=== PATIENT | female | born 1945 | race Caucasian/White ===

== ENCOUNTER → 2017-10-14 12:39 | Outpatient (CLI) | payer MEDICARE, BC, SELFPAY ==
--- NOTE | 2017-10-14 | MM_ITS ---
MM Dig mamm DX unilat LT CAD INDICATION: History of breast cancer with radiation and surgery. Developing calcifications in the upper outer left breast Follow-up abnormal mammogram ORDERING PHYSICIAN: New Colmenares MD PATIENT AGE: 72 years COMPARISON: 04/09/2017, 04/18/2017, 03/20/1950 TECHNIQUE: Standard images performed along with views FINDINGS: Average fibroglandular tissue. Asymmetric density is present in the upper outer left breast in the surgical bed consistent with scarring. There is some deformity of the left breast in this region. Coarse calcifications are present in the biopsy bed. There are smaller calcifications also present. These however have a benign appearance have an a coarse nature. These are probably benign. Continued six-month follow-up is recommended. IMPRESSION: Probably benign calcifications upper outer left breast likely representing fat necrosis. BI-RADS Category: 3 Benign Finding Short Term Follow-up RECOMMENDED FOLLOW-UP: 6M - 6 MONTH FOLLOW-UP (A letter has been sent to the patient regarding results of the study.)
== END ==
PROVIDERS: Family Provider Internal Medicine Adolescent Medicine; PCP Internal Medicine Adolescent Medicine; Visit Provider Internal Medicine Adolescent Medicine
DX: R92.8 Other abnormal and inconclusive findings on diagnostic imaging of breast (principal)
CPT/HCPCS: 77065

== ENCOUNTER → 2018-04-13 08:43 | Outpatient (CLI) | payer MEDICARE, BC, SELFPAY ==
--- NOTE | 2018-04-13 08:58 | MM_ITS ---
MM Dig mamm BI DX w/CAD INDICATION: Follow-up abnormal mammogram ORDERING PHYSICIAN: New Colmenares MD PATIENT AGE: 73 years COMPARISON: 04/09/2017, 04/18/2017, 10/14/2017 TECHNIQUE: Standard images performed along with spot compression mag views of the left breast FINDINGS: Average fibroglandular tissue. Postsurgical changes in the upper outer aspect of the left breast with coarse calcifications. Calcifications here at somewhat increased but have a benign appearance coarse in nature some with internal lucencies. No malignant appearing mass or malignant appearing microcalcifications evident. IMPRESSION: Benign findings, no evidence of malignancy. Postsurgical changes upper outer left breast benign-appearing calcifications BI-RADS Category: 2 Benign Finding(s) RECOMMENDED FOLLOW-UP: 1YR - 1 YEAR FOLLOW-UP (A letter has been sent to the patient regarding results of the study.)
== END ==
PROVIDERS: PCP Internal Medicine Adolescent Medicine; Visit Provider Internal Medicine Adolescent Medicine
DX: R92.8 Other abnormal and inconclusive findings on diagnostic imaging of breast (principal)
CPT/HCPCS: 77066

== ENCOUNTER → 2018-05-18 10:35 | Outpatient (CLI) | payer MEDICARE, BC, SELFPAY ==
--- NOTE | 2018-05-18 10:43 | XR_ITS ---
XR foot LT min 3V HISTORY: ITS.REASON: LT HEEL PAIN ORDERING PHYSICIAN: New Colmenares MD PATIENT AGE: 73 years COMPARISON: None FINDINGS: Moderate to severe hallux valgus is present. There is 4 mm lateral displacement of the proximal phalanx with osteoarthritis and bunion formation at the first metatarsophalangeal junction. Osteoarthritis also noted at the second MTP joint. There is a calcaneal spur noted at 9 mm. No fracture or dislocation. IMPRESSION: 1. 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 Bone spur of the calcaneus at 9 mm
== END ==
PROVIDERS: PCP Internal Medicine Adolescent Medicine; Visit Provider Internal Medicine Adolescent Medicine
DX: M79.672 Pain in left foot (principal)
CPT/HCPCS: 73630

== ENCOUNTER → 2019-04-22 08:43 | Outpatient (CLI) | payer MEDICARE, BC, SELFPAY ==
--- NOTE | 2019-04-22 08:47 | MM_ITS ---
PROCEDURE: MM DIG SCREENING MAMM BI W/CAD CLINICAL INDICATION: SCREENING There has been previous lumpectomy left breast though it is not clear from history whether this is for malignancy or benign disease. COMPARISON: DMDXUAVL DIG MAMM-DX UNI A/VWS-LT W/CAD from 04/18/2017 DXLT MM Dig mamm DX unilat LT CAD from 10/14/2017 DXBI MM Dig mamm BI DX w/CAD from 04/13/2018 TECHNIQUE: Standard CC and MLO images were obtained. R2 CAD reviewed. FINDINGS: Scattered fibroglandular densities are seen throughout both breast. This postsurgical scarring upper-outer quadrant left breast with coarse appearing calcifications as noted previously. There is faint arterial calcification in each breast. There is a benign-appearing calcification right breast. There is no suspicious lesion and no suspicious microcalcifications. IMPRESSION: Stable exam with postsurgical changes left breast and no suspicious lesions seen BI-RAD Category: 2 Benign Finding(s) FOLLOW-UP: 1YR 1 Year Follow-up (A letter has been sent to the patient regarding results of the study.) Dictated by: Dr. Ayush Light MD 04/23/2019 08:[address] Ayush Light MD in [place] 04/23/2019 08:17
== END ==
PROVIDERS: PCP Internal Medicine Adolescent Medicine; Visit Provider Internal Medicine Adolescent Medicine
DX: Z12.31 Encounter for screening mammogram for malignant neoplasm of breast (principal)
CPT/HCPCS: 77067

== ENCOUNTER → 2020-01-10 08:54 | Outpatient (CLI) | payer MEDICARE, BC, SELFPAY ==
[2020-01-10 10:04] LABS: Coronavirus 19 IgG Antibody Negative (Negative); Coronavirus 19 IgM Antibody Negative (Negative)
== END ==
PROVIDERS: Visit Provider Ophthalmology
DX: Z01.818 Encounter for other preprocedural examination (principal)
CPT/HCPCS: 36415; 86328

== ENCOUNTER 2020-01-11 07:24 | Day surgery (SDC) | payer MEDICARE, BC, SELFPAY ==
[2020-01-11 07:48] VITALS: BP 144/93; PULSE 71; RESP 18; TEMP 36.2; O2SAT 96; BMI 30.2
[2020-01-11 08:48] VITALS: BP 140/88; PULSE 62; RESP 18; O2SAT 95
== END 2020-01-11 08:50 | disposition home or self-care (01) ==
LOC: OUTP 07:26
PROVIDERS: PCP Internal Medicine Adolescent Medicine; Visit Provider Ophthalmology
PROC: (CPT 66821; principal; 2020-01-11 08:30)
DX: H26.491 Other secondary cataract, right eye (principal); Z96.1 Presence of intraocular lens; H53.8 Other visual disturbances; I11.9 Hypertensive heart disease without heart failure; I51.9 Heart disease, unspecified; Z90.710 Acquired absence of both cervix and uterus; Z87.442 Personal history of urinary calculi; Z88.2 Allergy status to sulfonamides; Z88.8 Allergy status to other drugs, medicaments and biological substances; Z79.82 Long term (current) use of aspirin; Z79.899 Other long term (current) drug therapy
CPT/HCPCS: 66821

== ENCOUNTER → 2020-03-15 08:46 | Outpatient (CLI) | payer MEDICARE, BC, SELFPAY ==
[2020-03-15 13:43] LABS: Coronavirus 19 IgG Antibody Negative (Negative); Coronavirus 19 IgM Antibody Negative (Negative)
== END ==
PROVIDERS: Visit Provider Internal Medicine Gastroenterology
DX: Z01.818 Encounter for other preprocedural examination (principal); Z86.010 Personal history of colon polyps
CPT/HCPCS: 36415; 86328

== ENCOUNTER 2020-03-17 09:27 | Day surgery (SDC) | payer MEDICARE, BC, SELFPAY ==
[2020-03-09 13:27] VITALS: BMI 31.7
[2020-03-17] VITALS (7 sets, daily range): BP systolic 131–202; BP diastolic 70–87; PULSE 55–63; RESP 16–20; TEMP 36.2–36.8; O2SAT 95–99
--- NOTE | 2020-03-17 11:25 | HMH.ANESCL ---
[facility] Anesthesia Checklist - Patient Identification Patient Identification: Arm Band - Structural Data Admitted From: Home Planned Operative Procedure/s: colonoscopy Consent for Planned Operative Procedure(s) Verified: Yes Verified Documents: Surgical Consent, History and Physical - NPO Status Verified Time NPO: 00:00 - Additional verifications Anesthesia Reactions: No - Airway Assessment C-Spine Mobility Assessed: Yes (mp2) TMJ Mobility Assessed: Yes Dentition: Dentures-good fit - Neurological Assessment Level of Consciousness: Awake, Alert - Anesthesia Plan Anesthesia Risk discussed: Yes Anesthesia Plan: Verified ASA Class: III Anesthesia Type: MAC [facility] History I have reviewed the patient's past medical history: Yes Medical History: Reports:: Cancer (breast), Depression, Hyperlipidemia, Hypertension Denies:: Diabetes Mellitus Type 1, Diabetes Mellitus Type 2, Internal Pacemaker, MRSA, Seizures *Have you ever received a pneumonia vaccine?: Yes *Have you received a flu vaccine this season?: Yes Other Medical History: Reports: Hypothyroidism Anesthesia experience/problems:: nac Laterality Cases: Left: Lumpectomy, Bilateral: Tonsillectomy Other Surgeries: Yes: Hysterectomy-Total, Other. No: Pacemaker Amputation: No Fractures: No - *Social History Last grade of school completed: High school graduate Smoking Status: Never smoker Alcohol Intake: never Substance Use Type: denies use *Occupational Status:: retired Housing: house Household Members: spouse *Travel in the last 8 weeks: None Family Hx:: Non-contributory
--- NOTE | 2020-03-17 11:49 | HMH.PROC ---
[facility] Procedure Note Procedure Note:: Colonoscopy Procedure Report: Colonoscopy with cold snare polypectomy Endoscopist: Krishna Finnegan II, MD Referring physician: New Colmenares M.D. Date of Procedure: March 17, 2020 Equipment: Olympus 180 variable stiffness pediatric colonoscope Sedation: MAC sedation Indication: Mrs. Betancourt is a 75-year-old female who is here for follow-up screening/surveillance colonoscopy secondary to a personal history of adenomatous colon polyps. The patient did have a colonoscopy 10 years ago (Efrain Grimaldo MD) and had 3 polyps removed. Her last colonoscopy 5 years ago (Abdirahman Garcia MD) revealed 5 polyps that were removed. The patient does take a probiotic daily. The patient reports no abdominal pain, weight loss, change in her bowel habits or rectal bleeding. She does get some hemorrhoidal prolapse. She reports no family history of colon cancer. Procedure: Prior to the procedure, a history and physical exam was performed, and patient's medications and allergies were reviewed. The risks, benefits and alternatives of the sedation and procedure were discussed with the patient. All questions were answered and informed consent was obtained. The patient was brought to the procedure room. Patient identification and proposed procedure were verified by the physician and the nurse. The patient was placed in a left lateral decubitus position and the scope was passed under direct vision. Throughout the procedure, the patient's blood pressure, pulse, and oxygen saturations were monitored continuously. The colonoscopy was accomplished without difficulty. The patient tolerated the procedure well. Findings: On digital rectal examination there was normal rectal tone. There were no external hemorrhoids. The colonoscope was introduced through the anal canal to the rectum and advanced to the cecum. The ileocecal valve and appendiceal orifice were identified. The scope was advanced a short distance into the ileum which appeared grossly normal. The scope was then withdrawn into the colon. There was mild melanosis coli identified within the colon. There were a total of 10 colon polyps (cecum x2 (3 and 5 mm), ascending x2 (2 and 4 mm), transverse x3 (3, 4 and 6 mm) and ascending x3 (3, 3 and 7 mm). All of these were removed via cold snare polypectomy. There were scattered diverticuli throughout the descending and sigmoid colon (LEFT colon). The rectum itself was normal. Upon retroflexion within the rectum there were grade 2 internal hemorrhoids. The preparation was excellent throughout with [place] Preparation Score of 9. The cecal time was 17 minutes. Impression: 1. Colonic polyps x10 2. Left-sided diverticulosis 3. Mild melanosis coli 4. Grade 2 internal hemorrhoids Plan: I will follow up the polyp pathology and recommend repeat colonoscopy again in 3 years based upon the polyp histology. I would encourage a fiber bowel regiment on a long-term daily maintenance basis.
== END 2020-03-17 12:45 | disposition home or self-care (01) ==
PROVIDERS: PCP Internal Medicine Adolescent Medicine; Visit Provider Internal Medicine Gastroenterology
PROC: 0DJD8ZZ Inspection of Lower Intestinal Tract, Via Natural or Artificial Opening Endoscopic (ICD-10-PCS; CPT 45378; principal; 2020-03-17 10:30)
DX: Z12.11 Encounter for screening for malignant neoplasm of colon (principal); K63.5 Polyp of colon; K57.30 Diverticulosis of large intestine without perforation or abscess without bleeding; K63.89 Other specified diseases of intestine; K64.1 Second degree hemorrhoids; Z86.010 Personal history of colon polyps; Z85.3 Personal history of malignant neoplasm of breast; E78.5 Hyperlipidemia, unspecified; I10 Essential (primary) hypertension; F32.9 Major depressive disorder, single episode, unspecified; E03.9 Hypothyroidism, unspecified; Z90.89 Acquired absence of other organs
CPT/HCPCS: 45385; 88305

== ENCOUNTER → 2020-04-28 09:48 | Outpatient (CLI) | payer MEDICARE, BC, SELFPAY ==
--- NOTE | 2020-04-28 09:51 | MM_ITS ---
PROCEDURE: MM DIG SCREENING MAMM BI W/CAD Digital Breast Tomosynthesis Included CLINICAL INDICATION: SCREENING Been a previous lumpectomy left breast for malignancy diagnosed 2011, and a previous biopsy right breast for benign disease. COMPARISON: MG DXLT MM Dig mamm DX unilat LT CAD from 10/14/2017 MG DXBI MM Dig mamm BI DX w/CAD from 04/13/2018 MG MM DIG SCREENING MAMM BI W/CAD from 04/22/2019 TECHNIQUE: Standard CC and MLO images and 3D Tomosynthesis was obtained. R2 CAD reviewed. FINDINGS: Scattered fibroglandular densities are seen in both breasts. Again noted is postlumpectomy scarring upper quadrant left breast stable coarse benign-appearing calcifications at the lumpectomy site. There is faint arterial calcification in each breast. There is a mole marker right breast. There is a stable benign-appearing density central portion right breast. There is no suspicious lesion and no suspicious microcalcifications. IMPRESSION: Stable fibrofatty parenchyma with no suspicious lesions seen BI-RAD Category: 2 Benign Finding(s) FOLLOW-UP: 1YR 1 Year Follow-up (A letter has been sent to the patient regarding results of the study.) Dictated by: Dr. Ayush Light MD 05/02/2020 09:30 Dr. Ayush Light MD in [place] 05/02/2020 09:30
== END ==
PROVIDERS: PCP Internal Medicine Adolescent Medicine; Visit Provider Internal Medicine Adolescent Medicine
DX: Z12.31 Encounter for screening mammogram for malignant neoplasm of breast (principal)
CPT/HCPCS: 77063; 77067

== ENCOUNTER → 2020-05-08 08:30 | Outpatient (CLI) | payer MEDICARE, BC, SELFPAY ==
[2020-05-08 11:31] LABS: Coronavirus 19 IgG Antibody Positive (Negative); Coronavirus 19 IgM Antibody Positive (Negative)
[2020-05-08 14:38] LABS: Adenovirus,PCR Not Detected (NotDetected); Bordetella Pertussis Not Detected (NotDetected); Chlamydophila Pneumoniae, PCR Not Detected (NotDetected); Coronavirus 19, PCR Not Detected (NotDetected); Coronavirus 229E Not Detected (NotDetected); Coronavirus NL63 Not Detected (NotDetected); Coronavirus OC43 Not Detected (NotDetected); Coronovirus HKU1,PCR Not Detected (NotDetected); Human Metapneumovirus Not Detected (NotDetected); Influenza A, PCR Not Detected (NotDetected); Influenza AH1, 2009 Not Detected (NotDetected); Influenza AH1, PCR Not Detected (NotDetected); Influenza AH3,PCR Not Detected (NotDetected); Influenza B, PCR Not Detected (NotDetected); Mycoplasma Pneumoniae, PCR Not Detected (NotDetected); Parainfluenza 1, PCR Not Detected (NotDetected); Parainfluenza 2, PCR Not Detected (NotDetected); Parainfluenza 3, PCR Not Detected (NotDetected); Parainfluenza 4, PCR Not Detected (NotDetected); Respiratory Syncytial Virus Not Detected (NotDetected); Rhinovirus/Enterovirus Not Detected (NotDetected)
== END ==
PROVIDERS: Visit Provider Ophthalmology
DX: Z01.818 Encounter for other preprocedural examination (principal); Z86.19 Personal history of other infectious and parasitic diseases
CPT/HCPCS: 36415; 86328; 87581; 87633; 87798; U0003

== ENCOUNTER 2020-05-09 08:45 | Day surgery (SDC) | payer MEDICARE, BC, SELFPAY ==
[2020-05-09 09:57] VITALS: BP 181/106; PULSE 62; RESP 16; TEMP 36.8; O2SAT 98; BMI 33.0
[2020-05-09 10:45] VITALS: BP 197/98; PULSE 57; RESP 18; TEMP 36.6; O2SAT 97
== END 2020-05-09 10:55 | disposition home or self-care (01) ==
LOC: OUTP 08:48
PROVIDERS: PCP Internal Medicine Adolescent Medicine; Visit Provider Ophthalmology
PROC: (CPT 66821; principal; 2020-05-09 09:30)
DX: H26.492 Other secondary cataract, left eye (principal); Z96.1 Presence of intraocular lens; Z88.2 Allergy status to sulfonamides; Z88.8 Allergy status to other drugs, medicaments and biological substances; Z79.899 Other long term (current) drug therapy
CPT/HCPCS: 66821

== ENCOUNTER → 2020-06-26 09:53 | Outpatient (CLI) | payer MEDICARE, BC, SELFPAY ==
--- NOTE | 2020-06-26 09:55 | XR_ITS ---
PROCEDURE: XR DEXA AXIAL SKELETON CLINICAL HISTORY: OSTEOPENIA COMPARISON: CR BONE3 BONE DENSITOMETRY(HIP:LT SPINE from 09/28/2015 FINDINGS: The right hip BMD is 0.712 with a T-score of -1.2. The left hip BMD is 0.589 with a T-score of -2.3. The lumbar spine BMD is 0.799 with a T-score of -2.3. Previously the lowest density was at the left femoral neck with a T-score of -1.6. the bone density has somewhat decreased compared to the previous exam. IMPRESSION: This patient is considered osteopenic according to the World Health Organization criteria. Bone density is between 10 and 25 percent below young normal. Fracture risk is moderate. Treatment is advised. Based on these results a follow-up exam is recommended in 2 year. Dictated by: Trino Rogel MD 06/27/2020 13:55 Trino Rogel MD in [place] 06/27/2020 13:55
== END ==
PROVIDERS: PCP Internal Medicine Adolescent Medicine; Visit Provider Internal Medicine Adolescent Medicine
DX: M85.89 Other specified disorders of bone density and structure, multiple sites (principal)
CPT/HCPCS: 77080

== ENCOUNTER → 2020-08-21 16:04 | Outpatient (CLI) | payer MEDICARE, BC, SELFPAY ==
[2020-08-21 16:35] LABS: Basophils # 0.1 K/mm3 (0-0.2); Basophils % 0.7 % (0.1-2.0); Eosinophils # 0.1 K/mm3 (0.0-0.4); Eosinophils % 1.4 % (0.1-12.0); Hematocrit 38.2 % (37.0-47.0); Hemoglobin 12.5 g/dL (12.2-16.2); Lymphocytes # 2.3 K/mm3 (0.7-4.5); Lymphocytes % 28.9 % (10-50); Mean Corpuscular HGB Conc 32.8 g/dL (31.8-35.4); Mean Corpuscular Hemoglobin 30.2 pg (27.0-31.2); Mean Platelet Volume 8.5 fl (7.4-10.4); Monocytes # 0.5 K/mm3 (0.1-1.0); Monocytes % 6.3 % (1.7-9.3); Neutrophils % 62.7 % (37.0-80.0); Platelet Count 298 K/mm3 (142-424); Red Blood Count 4.15 M/mm3 (4.20-5.40); Red Cell Distribution Width 13.5 % (11.5-17.5)
[2020-08-21 17:30] LABS: Chloride 105 mmol/L (98-107); Potassium 4.1 mmoL/L (3.5-5.1); Sodium 143 mmol/L (136-145)
[2020-08-21 17:32] LABS: Blood Urea Nitrogen 13 mg/dl (7-17); Estimated Glomerular Filt Rate 82 ml/min (>60); GFR (African American) 99 ML/MIN (>60)
[2020-08-21 17:33] LABS: Alanine Aminotransferase 20 U/L (12-78); Albumin Level 4.4 g/dl (3.5-5.0); Albumin/Globulin Ratio 1.7 (1.1-1.8); Alkaline Phosphatase 65 U/L (38-126); Anion Gap 12.1 mEq/L (5-15); Aspartate Amino Transferase 30 U/L (14-36); Bilirubin,Total 0.6 mg/dl (0.2-1.3); Calcium 9.6 mg/dl (8.4-10.2); Carbon Dioxide 30 mmol/L (22.0-30.0); Globulin 2.6 g/dL (1.3-3.2); Glucose 108 mg/dl (74-100)
[2020-08-21 18:04] LABS: Thyroid Stimulating Hormone 1.12 uIU/mL (0.465-4.68)
== END ==
PROVIDERS: Visit Provider Nurse Practitioner Family
DX: R60.9 Edema, unspecified (principal); I10 Essential (primary) hypertension
CPT/HCPCS: 36415; 80053; 84443; 85025

== ENCOUNTER 2020-09-08 10:24 | Emergency (ER) | payer MEDICARE, BC, SELFPAY ==
[2020-09-08 10:41] VITALS: BP 143/94; PULSE 71; RESP 16; TEMP 36.4; O2SAT 97; BMI 24.4
[2020-09-08 11:00] VITALS: BP 139/95; PULSE 76; RESP 16; TEMP 36.6
--- NOTE | 2020-09-08 11:00 | HMH.EDUTC ---
[facility] [place] Clinical Impression: Neck mass Disposition: Home, Self-Care Condition on Discharge: Good Instructions: Hypothyroidism, DI for Lymphadenopathy Additional Instructions: Follow up with your primary care physician. You may need an ultrasound of your thyroid and you primary care physician should orders this, since you will have to follow up with them for the results. Continue to take your thyroid medication as you are. GO TO THE ER FOR ANY WORSENING SYMPTOMS OR CONCERNS Referrals: New Colmenares MD [Primary Care Provider] - Time of Disposition: 12:17 Medical Decision Making - Medical Records Medical records reviewed: No: I reviewed the patient's medical records. - Dennis Inquiry Pt receiving controlled substance: No Vital Signs: 09/08/20 10:41 09/08/20 11:00 Temperature 97.6 F 98 F Temperature Source Tympanic Pulse Rate 76 Pulse Rate [Right] 71 Respiratory Rate 16 16 Blood Pressure 139/95 H Blood Pressure [Right Arm] 143/94 H Blood Pressure Mean [Right Arm] 110 Blood Pressure Source [Right Arm] Automatic Cuff Blood Pressure Position [Right Arm] Sitting 02 Sat by Pulse Oximetry 97 - Lab Data Lab Results 09/08/20 11:00: Strep Scn Rapid Clinic Negative 09/08/20 11:22: WBC 5.5, RBC 4.11 L, Hgb 12.3, Hct 37.8, MCV 91.9, MCH 30.0, MCHC 32.7, RDW 13.8, Plt Count 246, MPV 7.8, Neut % (Auto) 56.3, Lymph % (Auto) 31.8, [place] % (Auto) 8.2, Eos % (Auto) 3.0, Baso % (Auto) 0.7, Neut # (Auto) 3.1, Lymph # (Auto) 1.7, [place] # (Auto) 0.5, Eos # (Auto) 0.2, Baso # (Auto) 0.0 09/08/20 11:22: Sodium 141, Potassium 4.5, Chloride 108 H, Carbon Dioxide 28, Anion Gap 9.5, BUN 10, Creatinine 0.70, Estimated Creat Clear 63, Estimated GFR 82, Est GFR ( Amer) 99, Glucose 110 H, Calcium 9.0, TSH 0.91 09/08/20 11:22: Free T4 1.46 Result diagrams: 09/08/20 11:22 09/08/20 11:22 Orders (Tests/Meds): ORDERS Category Date Time Status Strep Screen Confirmation Stat Micro 09/08/20 11:00 Received - Radiology Data #1 Image(s): Chest Image Reviewed: Yes I reviewed the patient's radiology image, Yes I have reviewed radiologist's interpretation Preliminary Findings: Normal/NAD PROCEDURE: XR CHEST 2V CLINICAL HISTORY: cough COMPARISON: No exams were available for comparison FINDINGS: The cardiomediastinal silhouette and pulmonary vascularity are within normal limits. There is mild aortic tortuosity. There is a somewhat prominent pericardial fat pad at the right cardiophrenic angle. The lungs are clear without infiltrates, suspicious nodules, or pleural effusions. No acute bony abnormalities. IMPRESSION: No acute findings. Dictated by: Dr. Ayush Light MD 09/08/2020 12:08 Dr. Ayush Light MD in [place] 09/08/2020 12:08 [facility] [place] - General Stated complaint: Lump on thyroid Time Seen by Provider: 09/08/20 11:00 Mode of Arrival: Ambulatory Source of Information: Patient Limitations: No Limitations Description of Symptoms (Recalled from Triage Doc. by RN): pt c/o lump on her neck she thinks it may be her thyroid and its painful in her neck and shoulder. pt has a swollen lymph node at the base of her neck. it does not appear to be on her thyroid. pt states its tender to the touch. pt also states she has a scratchy throat. HEENT Symptoms (Recalled from RN notes): Yes (swollen area at the base of her neck) Resp Symptoms (Recalled from RN notes): No Skin Symptoms (Recalled from RN notes): No MS Symptoms (Recalled from RN notes): No Functional Status (Recalled from RN notes): na - History of Present Illness Provider Complaint: She states that she has a lump on her neck. She thinks that it may be a nodule on her thyroid. She has a history of hypothyroidism. She states that the lump has been there for the past 4 days. She denies any difficulty breathing or swallowing. She denies any sore throat or additional lumps or enlarged lymph nodes. - Related Data Home
[2020-09-08 11:02] LABS: UTC Strep Screen (Rapid) Negative (Negative)
[2020-09-08 11:33] LABS: Chloride 108 mmol/L (98-107); Potassium 4.5 mmoL/L (3.5-5.1); Sodium 141 mmol/L (136-145)
[2020-09-08 11:36] LABS: Anion Gap 9.5 mEq/L (5-15); Blood Urea Nitrogen 10 mg/dl (7-17); Carbon Dioxide 28 mmol/L (22.0-30.0); Creatinine Clearance Estimated 63 mL/min (50-200); Estimated Glomerular Filt Rate 82 ml/min (>60); GFR (African American) 99 ML/MIN (>60); Glucose 110 mg/dl (74-100)
[2020-09-08 11:39] LABS: Basophils % 0.7 % (0.1-2.0); Eosinophils # 0.2 K/mm3 (0.0-0.4); Hematocrit 37.8 % (37.0-47.0); Hemoglobin 12.3 g/dL (12.2-16.2); Lymphocytes # 1.7 K/mm3 (0.7-4.5); Lymphocytes % 31.8 % (10-50); Mean Corpuscular HGB Conc 32.7 g/dL (31.8-35.4); Mean Corpuscular Volume 91.9 fl (81-99); Mean Platelet Volume 7.8 fl (7.4-10.4); Monocytes # 0.5 K/mm3 (0.1-1.0); Monocytes % 8.2 % (1.7-9.3); Neutrophils # 3.1 K/mm3 (1.8-7.8); Neutrophils % 56.3 % (37.0-80.0); Platelet Count 246 K/mm3 (142-424); Red Blood Count 4.11 M/mm3 (4.20-5.40); Red Cell Distribution Width 13.8 % (11.5-17.5); White Blood Count 5.5 K/mm3 (4.8-10.8)
[2020-09-08 12:07] LABS: Thyroid Stimulating Hormone 0.91 uIU/mL (0.465-4.68)
[2020-09-08 12:25] LABS: Free T4 (Free Thyroxine) 1.46 ng/dl (0.78-2.19)
== END 2020-09-08 12:36 | disposition home or self-care (01) ==
PROVIDERS: Emergency Provider Nurse Practitioner Family; PCP Internal Medicine Adolescent Medicine
DX: R22.1 Localized swelling, mass and lump, neck (principal); E03.9 Hypothyroidism, unspecified; E78.5 Hyperlipidemia, unspecified; I10 Essential (primary) hypertension; F33.1 Major depressive disorder, recurrent, moderate; Z79.899 Other long term (current) drug therapy; Z85.3 Personal history of malignant neoplasm of breast
CPT/HCPCS: 71046; 80048; 84439; 84443; 85025; 87880; 99202; G0463

== ENCOUNTER → 2020-09-13 06:50 | Outpatient (CLI) | payer MEDICARE, BC, SELFPAY ==
--- NOTE | 2020-09-13 06:55 | CT_ITS ---
PROCEDURE: CT CHEST WO CON Swelling mass on rt sternoclavicular area since Marked with BB CLINICAL INDICATION: PAIN OF R STERNOCLAVICULAR JOINT,CHEST WALL MASS COMPARISON: CR XR CHEST 2V from 09/08/2020 TECHNIQUE: Axial images obtained with sagittal and coronal reformats. All CT scans at the facility use one or more dose reduction, viz: automated exposure control, ma/kV adjustment per patient size (including targeted exams where dose is matched to indication, i.e. head), or iterative reconstruction technique. FINDINGS: No mediastinal or hilar mass or enlarged lymph nodes. There are few small mediastinal nodes. There is a medium-sized hiatal hernia. There is a prominent right pericardial fat pad. Small right thyroid nodule present less than 1 cm. Patchy density is present in the right lung base medially adjacent to the hiatal hernia and could be due to small area of atelectasis or scarring versus patchy pneumonia. Marker is placed in the lower neck on the right near the sternoclavicular junction denoting the area of clinical concern. There is mild widening of the sternoclavicular joint with slight increased soft tissue density in the periarticular region and within the joint. There is mild superior subluxation of the head of the clavicle. There is faint periarticular calcification. No definite bony destructive process evident. Mild upper thoracic curvature convex left and midthoracic curvature convex right. Degenerative changes are present in the cervical and thoracic spine. Upper abdominal images demonstrate cholelithiasis. Small right renal cyst noted IMPRESSION: 1. Mild widening of the joint space of the a right sternoclavicular joint with some increase in soft tissue density at this region and minimal periarticular calcification. There is mild superior subluxation of the clavicular head on the right. No definite bony erosive change at this time. The findings may be related to inflammatory arthritic changes. Cannot exclude the possibility of a septic joint. Please correlate with clinical findings. 2. Patchy density right lung base medially and may be due to an area of atelectasis, fibrosis or patchy infiltrate 3. Medium-sized hiatal hernia 4. Cholelithiasis Dictated by: Trino Rogel MD 09/14/2020 09:44 Trino Rogel MD in [place] 09/14/2020 09:44
== END ==
PROVIDERS: PCP Internal Medicine Adolescent Medicine; Visit Provider Internal Medicine Adolescent Medicine
DX: M25.511 Pain in right shoulder (principal); R22.2 Localized swelling, mass and lump, trunk
CPT/HCPCS: 71250

== ENCOUNTER → 2020-09-19 08:52 | Outpatient (CLI) | payer MEDICARE, BC, SELFPAY ==
[2020-09-19 09:13] LABS: Basophils # 0.1 K/mm3 (0-0.2); Eosinophils # 0.2 K/mm3 (0.0-0.4); Eosinophils % 3.6 % (0.1-12.0); Hematocrit 38.7 % (37.0-47.0); Hemoglobin 12.4 g/dL (12.2-16.2); Lymphocytes # 1.7 K/mm3 (0.7-4.5); Lymphocytes % 33.5 % (10-50); Mean Corpuscular Hemoglobin 29.8 pg (27.0-31.2); Mean Corpuscular Volume 93.3 fl (81-99); Mean Platelet Volume 8.3 fl (7.4-10.4); Monocytes # 0.3 K/mm3 (0.1-1.0); Monocytes % 6.6 % (1.7-9.3); Neutrophils # 2.7 K/mm3 (1.8-7.8); Neutrophils % 55.3 % (37.0-80.0); Platelet Count 256 K/mm3 (142-424); Red Blood Count 4.15 M/mm3 (4.20-5.40); Red Cell Distribution Width 13.4 % (11.5-17.5); White Blood Count 4.9 K/mm3 (4.8-10.8)
[2020-09-19 09:49] LABS: C-Reactive Protein 0.5 mg/L (0-4)
[2020-09-19 10:15] LABS: Erythrocyte Sedimentation Rate 32 mm/hr (0-30)
== END ==
PROVIDERS: Visit Provider Internal Medicine Adolescent Medicine
DX: R22.2 Localized swelling, mass and lump, trunk (principal)
CPT/HCPCS: 36415; 85025; 85651; 86140

== ENCOUNTER → 2020-10-19 09:55 | Outpatient (CLI) | payer MEDICARE, BC, SELFPAY ==
--- NOTE | 2020-10-19 10:00 | XR_ITS ---
PROCEDURE: XR LUMBAR SPINE MIN 4V CLINICAL INDICATION: LOW BACK PAIN AT MULTIPLE SITES COMPARISON: No exams were available for comparison FINDINGS: No fracture or dislocation. No lytic or blastic change. There is normal mineralization. There is normal alignment. The disc spaces are fairly well preserved. There are mild facet hypertrophic changes at L5 and S1. SI joints have an unremarkable appearance. Other findings:Cholelithiasis IMPRESSION: Mild facet arthritic changes at L5 and S1. Cholelithiasis Dictated by: Trino Rogel MD 10/19/2020 11:26 Trino Rogel MD in [place] 10/19/2020 11:26
--- NOTE | 2020-10-19 10:00 | XR_ITS ---
PROCEDURE: XR SACROILIAC JOINT BI MIN 3V CLINICAL INDICATION: LOW BACK PAIN AT MULTIPLE SITES COMPARISON: No exams were available for comparison FINDINGS: No fracture or dislocation. No lytic or blastic change. There is normal mineralization. The joint spaces are well-preserved. No significant degenerative/arthritic changes. No erosive changes evident. Other findings:None. IMPRESSION: Negative SI joints Dictated by: Trino Rogel MD 10/19/2020 11:27 Trino Rogel MD in [place] 10/19/2020 11:27
== END ==
PROVIDERS: PCP Internal Medicine Adolescent Medicine; Visit Provider Internal Medicine Adolescent Medicine
DX: M54.5 Low back pain (principal)
CPT/HCPCS: 72110; 72202

== ENCOUNTER → 2021-05-10 10:46 | Outpatient (CLI) | payer MEDICARE, BC, SELFPAY ==
--- NOTE | 2021-05-10 10:50 | MM_ITS ---
PROCEDURE INFORMATION: Exam: MG Bilateral Screening 3D Mammography Exam date and time: 05/10/2021 10:50 AM Age: 76 years old Clinical indication: Screening mammogram TECHNIQUE: Imaging protocol: Bilateral screening tomosynthesis and 2D mammography including computer-aided detection (CAD) when performed. COMPARISON: 1. MG MM DIG SCREENING MAMM BI W/CAD 04/28/2020 9:52 AM 2. MG MM DIG SCREENING MAMM BI W/CAD 04/22/2019 9:07 AM 3. MG DXBI MM Dig mamm BI DX w/CAD 04/13/2018 9:25 AM 4. MG DXLT MM Dig mamm DX unilat LT CAD 10/14/2017 1:15 PM FINDINGS: MAMMOGRAPHY: Breast composition: There are scattered areas of fibroglandular density. Mass: Stable benign-appearing subcentimeter nodules are present in the right breast. No new or morphologically suspicious nodule has developed to suggest malignancy. Architectural distortion: No new or suspicious architectural distortion. Calcifications: No new or suspicious calcifications are present Asymmetric density: No new or suspicious asymmetric density is present Skin thickening: None. Axillary adenopathy: None. IMPRESSION: No mammographic evidence of malignancy. Recommend annual screening mammography unless otherwise clinically indicated. ASSESSMENT: BI-RADS category 2: Benign
== END ==
PROVIDERS: PCP Internal Medicine Adolescent Medicine; Visit Provider Internal Medicine Adolescent Medicine
DX: Z12.31 Encounter for screening mammogram for malignant neoplasm of breast (principal)
CPT/HCPCS: 77063; 77067

== ENCOUNTER → 2021-06-20 10:18 | Outpatient (CLI) | payer MEDICARE, BC, SELFPAY ==
[2021-06-20 11:15] LABS: Basophils # 0.1 K/mm3 (0-0.2); Eosinophils # 0.1 K/mm3 (0.0-0.4); Eosinophils % 2.1 % (0.1-12.0); Hematocrit 41.2 % (37.0-47.0); Hemoglobin 13.4 g/dL (12.2-16.2); Lymphocytes # 1.9 K/mm3 (0.7-4.5); Lymphocytes % 32.3 % (10-50); Mean Corpuscular HGB Conc 32.6 g/dL (31.8-35.4); Mean Corpuscular Hemoglobin 30.8 pg (27.0-31.2); Mean Corpuscular Volume 94.6 fl (81-99); Mean Platelet Volume 8.7 fl (7.4-10.4); Monocytes # 0.3 K/mm3 (0.1-1.0); Monocytes % 5.8 % (1.7-9.3); Neutrophils # 3.4 K/mm3 (1.8-7.8); Neutrophils % 58.7 % (37.0-80.0); Platelet Count 292 K/mm3 (142-424); Red Blood Count 4.35 M/mm3 (4.20-5.40); Red Cell Distribution Width 13.3 % (11.5-17.5); White Blood Count 5.8 K/mm3 (4.8-10.8)
[2021-06-20 11:26] LABS: Alanine Aminotransferase 21 U/L (12-78); Albumin Level 4.3 g/dl (3.5-5.0); Albumin/Globulin Ratio 1.8 (1.1-1.8); Alkaline Phosphatase 62 U/L (38-126); Anion Gap 10.2 mEq/L (5-15); Aspartate Amino Transferase 32 U/L (14-36); Bilirubin,Total 0.6 mg/dl (0.2-1.3); Blood Urea Nitrogen 11 mg/dl (7-17); Calcium 9.7 mg/dl (8.4-10.2); Carbon Dioxide 32 mmol/L (22.0-30.0); Chloride 102 mmol/L (98-107); Chol/HDL Ratio 2.4 (1-3.5); Cholesterol 198 mg/dl (140-200); Estimated Glomerular Filt Rate 82 ml/min (>60); GFR (African American) 99 ML/MIN (>60); Globulin 2.4 g/dL (1.3-3.2); Glucose 112 mg/dl (74-100); HDL Cholesterol 81 mg/dl (40-60); Potassium 4.2 mmoL/L (3.5-5.1); Sodium 140 mmol/L (136-145); Total Protein,Serum 6.7 g/dl (6.3-8.2); Triglycerides 228 mg/dl (30-150); VLDL Cholesterol 46 mg/dL (0-40)
[2021-06-20 14:50] LABS: Hemoglobin A1C 5.7 % (4.0-6.0)
[2021-06-20 17:04] LABS: Direct LDL Cholesterol 85.72 mg/dL (100-129)
[2021-06-20 17:25] LABS: Thyroid Stimulating Hormone 1.76 uIU/mL (0.465-4.68)
== END ==
PROVIDERS: PCP Internal Medicine Adolescent Medicine; Visit Provider Internal Medicine Adolescent Medicine
DX: E03.9 Hypothyroidism, unspecified (principal); E78.5 Hyperlipidemia, unspecified; Z79.899 Other long term (current) drug therapy
CPT/HCPCS: 36415; 80053; 80061; 83036; 84443; 85025

== ENCOUNTER → 2022-02-01 11:11 | Outpatient (CLI) | payer MEDICARE, BC, SELFPAY ==
--- NOTE | 2022-02-01 11:16 | XR_ITS ---
FINAL REPORT CLINICAL HISTORY: right hammer toe FINDINGS: 3 views of the right foot were obtained. There is no acute fracture or dislocation. There is hallux valgus deformity. There are 2nd and 3rd digit hammertoe deformities. There is mild and moderate degenerative change. A plantar calcaneal spurs present. There is a calcification inferior to the calcaneal tuberosity. IMPRESSION: Mild and moderate degenerative changes with hammertoe deformity of the 2nd and 3rd digits. Reviewed, Interpreted and Dictated by Efrain Pastor III, MD Transcribed by Stiven Cadena Authenticated and [facility]
== END ==
PROVIDERS: PCP Internal Medicine Adolescent Medicine; Visit Provider Orthopaedic Surgery
DX: M79.671 Pain in right foot (principal)
CPT/HCPCS: 73630

== ENCOUNTER → 2022-05-17 15:04 | Outpatient (CLI) | payer MEDICARE, BC, SELFPAY ==
--- NOTE | 2022-05-17 15:08 | MM_ITS ---
PROCEDURE INFORMATION: Exam: MG Bilateral Screening 3D Mammography Exam date and time: 05/17/2022 3:22 PM Age: 77 years old Clinical indication: Screening examination TECHNIQUE: Imaging protocol: Bilateral Screening tomosynthesis and 2D mammography including computer-aided detection (CAD) when performed. COMPARISON: 1. MG MM DIG SCREENING MAMM BI W/CAD 05/10/2021 10:55 AM 2. MG MM DIG SCREENING MAMM BI W/CAD 04/28/2020 9:52 AM 3. MG MM DIG SCREENING MAMM BI W/CAD 04/22/2019 9:07 AM 4. MG DXBI MM Dig mamm BI DX w/CAD 04/13/2018 9:25 AM FINDINGS: MAMMOGRAPHY: Breast composition: There are scattered areas of fibroglandular density. Mass: None. Architectural distortion: No new or suspicious architectural distortion. Calcifications: Stable benign-appearing calcifications are present. No new or suspicious cluster of microcalcifications have developed. Asymmetric density: No new or suspicious asymmetric density is present Skin thickening: None. Axillary adenopathy: None. Other findings: Stable postoperative findings within the left breast. IMPRESSION: No mammographic evidence of malignancy. Recommend annual screening mammography unless otherwise clinically indicated. The ASSESSMENT: BI-RADS category 2: Benign
== END ==
PROVIDERS: PCP Internal Medicine Adolescent Medicine; Visit Provider Internal Medicine Adolescent Medicine
DX: Z12.31 Encounter for screening mammogram for malignant neoplasm of breast (principal)
CPT/HCPCS: 77063; 77067

== ENCOUNTER → 2023-01-21 08:21 | Outpatient (POV) | payer MEDICARE, BC, SELFPAY | PROVIDERS: Visit Provider Dermatology | DX: Z00.00 Encounter for general adult medical examination without abnormal findings (principal) ==

== ENCOUNTER → 2023-04-10 08:55 | Outpatient (CLI) | payer MEDICARE, BC, SELFPAY ==
--- NOTE | 2023-04-10 09:02 | XR_ITS ---
FINAL REPORT TECHNIQUE: Bone densitometry calculations of the lumbar spine, right hip and left hip were obtained. CLINICAL HISTORY: OSTEOPENIA COMPARISON: 06/26/2020 FINDINGS: Using L1-4, the bone mineral density of the spine is 0.930 g/cm2, corresponding to T-score of -1.1 and a Z score of 1.4. This is within the range of osteopenia. Using the left hip, the bone mineral density of the femoral neck is 0.676 g/cm2, corresponding to a T-score of -1.6 and a Z-score of 0.6. This is within the range of osteopenia. Using the right hip, the bone mineral density of the femoral neck is 0.752 g/cm2, corresponding to a T-score of - 0.9 and a Z-score of 1.3. This is within the range of normal. FRAX 10 year fracture risk is 11% for a hip fracture and 2.3% for a major osteoporotic fracture. NOTE: T-score: Standard deviation compared with peak bone mass of young adult mean. *Following the recommendations of the International Society of Bone densitometry, classification of hip BMD is based on the lower of two T-scores; total hip or femoral neck. IMPRESSION: 1. Bone mineral density of the lumbar spine within the range of osteopenia. 2. Bone mineral density of the left femoral neck within the range of osteopenia. 3. Bone mineral density of the right femoral neck within the range of normal. Reviewed, Interpreted and Dictated by Mya Hooker MD Transcribed by Lucy Connolly Authenticated and [facility]
== END ==
PROVIDERS: PCP Internal Medicine Adolescent Medicine; Visit Provider Internal Medicine Adolescent Medicine
DX: M85.89 Other specified disorders of bone density and structure, multiple sites (principal)
CPT/HCPCS: 77080

== ENCOUNTER → 2023-05-22 13:43 | Outpatient (CLI) | payer MEDICARE, BC, SELFPAY ==
--- NOTE | 2023-05-22 13:47 | MM_ITS ---
PROCEDURE INFORMATION: Exam: MG Bilateral Screening 3D Mammography Exam date and time: 05/22/2023 1:50 PM Age: 78 years old Clinical indication: Screening examination. History of left breast cancer TECHNIQUE: Imaging protocol: Bilateral Screening tomosynthesis and 2D mammography including computer-aided detection (CAD) when performed. COMPARISON: 1. MG MM DIG SCREENING MAMM BI W/CAD 05/17/2022 3:22 PM 2. MG MM DIG SCREENING MAMM BI W/CAD 05/10/2021 10:55 AM FINDINGS: MAMMOGRAPHY: Breast composition: There are scattered areas of fibroglandular density. Mass: None. Architectural distortion: Stable post operative architectural distortion in the left upper outer quadrant with associated benign calcific fat necrosis due to prior lumpectomy for carcinoma. Calcifications: No suspicious calcifications. Asymmetric density: None. Skin thickening: None. Axillary adenopathy: None. IMPRESSION: No mammographic evidence of malignancy. Annual screening is recommended unless otherwise clinically indicated. ASSESSMENT: BI-RADS Category 2: Benign
== END ==
PROVIDERS: PCP Internal Medicine Adolescent Medicine; Visit Provider Internal Medicine Adolescent Medicine
DX: Z12.31 Encounter for screening mammogram for malignant neoplasm of breast (principal)
CPT/HCPCS: 77063; 77067

== ENCOUNTER 2024-01-13 11:04 | Outpatient (POV) | payer MEDICARE, BC, SELFPAY | END 2024-01-13 23:59 | disposition home or self-care (01) | LOC: SC 11:05 | PROVIDERS: PCP Internal Medicine Adolescent Medicine; Visit Provider Dermatology | DX: Z00.00 Encounter for general adult medical examination without abnormal findings (principal) ==

== ENCOUNTER 2024-05-24 09:43 | Outpatient (CLI) | payer MEDICARE, BC, SELFPAY ==
--- NOTE | 2024-05-24 09:46 | MM_ITS ---
PROCEDURE INFORMATION: Exam: MG Bilateral Screening 3D Mammography Exam date and time: 05/24/2024 9:34 AM Age: 79 years old Clinical indication: Screening examination TECHNIQUE: Imaging protocol: Bilateral Screening tomosynthesis and 2D mammography including computer-aided detection (CAD) when performed. COMPARISON: 1. MG MM DIG SCREENING MAMM BI W/CAD 05/22/2023 1:50 PM 2. MG MM DIG SCREENING MAMM BI W/CAD 05/17/2022 3:22 PM FINDINGS: MAMMOGRAPHY: Breast composition: There are scattered areas of fibroglandular density. Mass: No suspicious masses. Architectural distortion: Postsurgical changes redemonstrated left breast. Calcifications: No suspicious calcifications. Asymmetric density: None. Skin thickening: None. Axillary adenopathy: None. IMPRESSION: No mammographic evidence of malignancy. Annual screening is recommended unless otherwise clinically indicated. ASSESSMENT: BI-RADS Category 2: Benign.
== END 2024-05-24 23:59 | disposition home or self-care (01) ==
LOC: RAD 09:44
PROVIDERS: PCP Internal Medicine Adolescent Medicine; Visit Provider Internal Medicine Adolescent Medicine
DX: Z12.31 Encounter for screening mammogram for malignant neoplasm of breast (principal)
CPT/HCPCS: 77063; 77067

== ENCOUNTER 2024-07-29 07:14 | Day surgery (SDC) | payer MEDICARE, BC, SELFPAY ==
[2024-07-29 07:40] VITALS: BP 162/93; PULSE 67; RESP 16; TEMP 36.2; O2SAT 97
[2024-07-29 07:50] VITALS: BMI 32.6
--- NOTE | 2024-07-29 07:57 | P.PNANES_ITS ---
[facility] Disclaimer: The information contained in this section may have been updated after the patient was seen, as this information can be updated by other users. Medical History (Updated 07/29/24 @ 07:36 by Shelia Mendoza) Acid reflux Hypothyroidism Hypercholesterolemia Hypertension Breast cancer Surgical History H/O mastectomy History of hysterectomy Family History Mother Family history of myocardial infarction Father Family history of myocardial infarction Social History (Updated 07/29/24 @ 07:38 by Shelia Mendoza) Smoking Status: Never smoker second hand exposure: No alcohol intake: never substance use type: denies use current occupational status: retired Travel in the last 8 weeks: None household members: spouse housing: house current occupational exposures/hazards: No caffeine: Yes Have you lived/traveled outside [place] in past 30 days?: No Contact w/someone who lives/traveled outside [place] past 30 days?: No Exposure to someone with infectious disease in past 14 days?: No Do you have a fever (greater than 100.4 F or 38 C)?: No Have you tested positive for COVID-19: No Exposed to someone with COVID-19 in past 14 days?: No Do you have a sore throat?: No Do you have a cough?: No Do you have any weakness?: No Are you experiencing any nausea/vomitting?: No Do you have any diarrhea?: No Are you experiencing any unusual bleeding?: No Do you have any muscle aches/pain?: No Do you have any abdominal pain?: No Are you experiencing loss of taste or smell?: No [facility] Anesthesia Checklist Patient Identification Patient Identification: Verbal (Name & ) Structural Data Admitted From: Home Planned Operative Procedure/s: colonoscpy Consent for Planned Operative Procedure(s) Verified: Yes NPO Status Verified Time NPO: 00:00 Additional verifications Anesthesia Reactions: No Airway Assessment Mallampati Score:: Class II C-Spine Mobility Assessed: Yes TMJ Mobility Assessed: Yes Dentition: Partials Neurological Assessment Level of Consciousness: Awake, Alert and Appropriate Anesthesia Plan Anesthesia Risk discussed: Yes Anesthesia Plan: Verified ASA Class: II Anesthesia Type: MAC
--- NOTE | 2024-07-29 08:18 | P.HP_ITS ---
History of Present Illness *Admission Date: 07/29/24 *Reason for visit:: Personal history of adenomatous colon polyps *History of present illness: Mrs. Betancourt is a 79-year-old female who is here for surveillance colonoscopy secondary to a personal history of adenomatous polyps. Her last colonoscopy with ms in March 2020 revealed 10 polyps which were removed. The examination is deemed medically necessary for surveillance colonoscopy. The patient has been seen, interviewed and examined prior to the procedure by both myself and the anesthesia provider. [facility] Disclaimer: The information contained in this section may have been updated after the patient was seen, as this information can be updated by other users. Medical History (Updated 07/29/24 @ 08:19 by Krishna Finnegan II, MD) Acid reflux Hypothyroidism Hypercholesterolemia Hypertension Breast cancer Surgical History H/O mastectomy History of hysterectomy Family History Mother Family history of myocardial infarction Father Family history of myocardial infarction Social History (Updated 07/29/24 @ 07:38 by Shelia Mendoza) Smoking Status: Never smoker second hand exposure: No alcohol intake: never substance use type: denies use current occupational status: retired Travel in the last 8 weeks: None household members: spouse housing: house current occupational exposures/hazards: No caffeine: Yes Have you lived/traveled outside [place] in past 30 days?: No Contact w/someone who lives/traveled outside [place] past 30 days?: No Exposure to someone with infectious disease in past 14 days?: No Do you have a fever (greater than 100.4 F or 38 C)?: No Have you tested positive for COVID-19: No Exposed to someone with COVID-19 in past 14 days?: No Do you have a sore throat?: No Do you have a cough?: No Do you have any weakness?: No Are you experiencing any nausea/vomitting?: No Do you have any diarrhea?: No Are you experiencing any unusual bleeding?: No Do you have any muscle aches/pain?: No Do you have any abdominal pain?: No Are you experiencing loss of taste or smell?: No Other Medical History Have you received the Flu Vaccine for this season: Yes Have you received the Pneumonia Vaccine: Yes Review of Systems Review of Systems Review of systems (narrative): Negative *Cardiovascular Comments: Negative *Gastrointestinal Comments: Negative *Genitourinary Comments: Negative *Musculoskeletal Comments: Negative *Neurologic Comments: Negative Meds Home Medications and Allergies Home Medications ?Medication ?Instructions ?Recorded ?Confirmed ?Type venlafaxine 25 mg tablet 75 mg PO DAILY mood 01/11/20 07/29/24 History bisoprolol 10 30 tab PO DAILY 07/29/24 07/29/24 History mg-hydrochlorothiazide 6.25 mg tablet ferrous sulfate 325 mg (65 mg 325 mg PO DAILY 07/29/24 07/29/24 History iron) tablet,delayed release isosorbide mononitrate 60 mg 30 mg PO DAILY 07/29/24 07/29/24 History tablet,extended release 24 hr levothyroxine 50 mcg tablet 50 mcg PO DAILY 07/29/24 07/29/24 History New Prescriptions to Start Prescriptions: Allergies Allergy/AdvReac Type Severity Reaction Status Date / Time bupropion (From Wellbutrin) Allergy Intermediate RASH/TIGHT Verified 07/29/24 07:38 CHEST olmesartan (From Benicar) Allergy Intermediate Unknown Verified 07/29/24 07:38 allergy reaction Sulfa (Sulfonamide Allergy Intermediate RASH/LIPS Verified 07/29/24 07:38 Antibiotics) SWELL Exam Data for Last 24 hours Vital signs and Labs for Last 24 Hours: Temp Pulse Resp BP Pulse Ox O2 Del Method 97.1 F L 67 16 162/93 H 97 Room Air 07/29/24 07:40 07/29/24 07:40 07/29/24 07:40 07/29/24 07:40 07/29/24 07:40 07/29/24 07:40 I & O for Last 24 hours: Intake & Output 07/26/24 07/27/24 07/28/24 07/29/24 23:59 23:59 23:59 23:59 Weight 173 lb *Routine HEENT Exam Head: Present normocephalic Eye: Present EOMI and PERRL ENT: Present mucous membranes moist *Routine Neck Exam Neck: Present supple *Routine Respiratory Exam Respiratory: Present CTA bilaterally *Routine Cardiovascular Exam Cardiovascular: Present RRR *Routine Abdominal Exam Abdominal: Present soft and normoactive bowel sounds; Absent tenderness *Routine Rectal Exam Rectal:: deferred *Routine Genitalia Exam Genitalia:: deferred *Routine Extremities Exam Extremities: Absent cyanosis, clubbing or edema *Routine Skin Exam Skin: Present warm; Absent rash *Routine Neurological Exam Neurological: Present alert and oriented X3 Assessment and Plan *Assessment and plan (1) Personal history of adenomatous and serrated colon polyps: Status: Acute Category: Medical Code(s): Z86.0101 - Personal history of adenomatous and serrated colon polyps Plan A/P: 1. Personal history of adenomatous colon polyps is the preprocedural diagnosis. The patient will be anesthetized/sedated using MAC sedation. The patient has been seen and examined. Cardiac and lung assessment prior to the examination is stable. Proceed with planned surveillance colonoscopy
[2024-07-29 08:20] VITALS: O2SAT 97
--- NOTE | 2024-07-29 08:20 | P.PCN_ITS ---
[facility] Procedure Note Date: 07/29/24 Time: 08:56 Procedure Note:: Colonoscopy Procedure Report: Colonoscopy Endoscopist: Krishna Finnegan II, MD Referring physician: New Colmenares M.D. Date of Procedure: July 29, 2024 Equipment: Olympus 190 variable stiffness pediatric colonoscope Sedation: MAC sedation Indication: Mrs. Betancourt is a 79-year-old female with a personal history of adenomatous colon polyps. She had a colonoscopy 14 to 15 years ago (Efrain Grimaldo) at which time 3 polyps were removed. Her colonoscopy 9 or 10 years ago revealed 5 polyps (Abdirahman Garcia) which were removed. Her last colonoscopy with az in March 2020 revealed 10 polyps all ranging in size from 2 to 7 mm(tubular adenomas x 10) which were removed. More recently, she has had iron deficiency (labs not available in computer) and she is on iron. She had been on Advil daily. She did stop this and begin using Tylenol. She reports no bright red rectal bleeding, melena or hematochezia. She reports no abdominal pain, weight loss or family history of colon cancer. She is on oral iron supplementation and has to use additional fiber. Procedure: Prior to the procedure, a history and physical exam was performed, and patient's medications and allergies were reviewed. The risks, benefits and alternatives of the sedation and procedure were discussed with the patient. All questions were answered and informed consent was obtained. The patient was brought to the procedure room. Patient identification and proposed procedure were verified by the physician and the nurse. The patient was placed in a left lateral decubitus position and the scope was passed under direct vision. Throughout the procedure, the patient's blood pressure, pulse, and oxygen saturations were monitored continuously. The colonoscopy was accomplished without difficulty. The patient tolerated the procedure well. Findings: On digital rectal examination there was normal rectal tone. There were no external hemorrhoids. The colonoscope was introduced through the anal canal to the rectum and advanced to the cecum. The ileocecal valve and appendiceal orifice were identified. The scope was advanced a short distance into the ileum which appeared grossly normal. The scope was then withdrawn into the colon. The cecum, ascending, transverse, descending, sigmoid and rectum were grossly normal. There were no mucosal abnormalities identified. Upon retroflexion within the rectum there were grade 1-2 internal hemorrhoids. The preparation was excellent throughout with [place] Preparation Score of 9. The cecal time was 12 minutes. Impression: 1. Normal colonoscopy with intubation of the terminal ileum 2. Grade 1-2 internal hemorrhoids Plan: The patient will not require any further preventive/surveillance colonoscopy. I do suspect that her iron deficiency is related to the Advil. [id number] non-steroidal anti-inflammatory drugs/NSAIDs (i.e. ibuprofen, Motrin, Advil, Aleve, naproxen, etc.) increase the risk of iron deficiency and often lead to very small breaks (erosions) in the stomach and small intestine. They can also reduce iron absorption. I do believe this contributed to her iron deficiency even though the colonoscopic findings were relatively normal with no identifiable cause detected.
[2024-07-29 09:00] VITALS: BP 99/66; PULSE 66; RESP 14; TEMP 36.3; O2SAT 98
[2024-07-29 09:10] VITALS: BP 103/66; PULSE 67; RESP 16; O2SAT 96
[2024-07-29 09:30] VITALS: BP 101/65; PULSE 61; RESP 18; O2SAT 97
== END 2024-07-29 09:30 | disposition home or self-care (01) ==
PROVIDERS: PCP Internal Medicine Adolescent Medicine; Visit Provider Internal Medicine Gastroenterology
PROC: 0DJD8ZZ Inspection of Lower Intestinal Tract, Via Natural or Artificial Opening Endoscopic (ICD-10-PCS; CPT 45378; principal; 2024-07-29 09:00)
DX: K64.8 Other hemorrhoids (principal); D50.9 Iron deficiency anemia, unspecified; Z86.0101 Personal history of adenomatous and serrated colon polyps
CPT/HCPCS: G0105